=== PATIENT | female | born 1990 | race African-American/Black ===

== ENCOUNTER 2018-05-14 06:00 | Inpatient (IN) | payer OTHER ==
[~2018-05-14] VITALS: Ht 165.1 cm; Wt 82.3 kg
[2018-05-14 07:29] VITALS: Ht 165.1 cm; Wt 82.3 kg
[2018-05-14 07:32] VITALS: BP 123/81; PULSE 89; RESP 18
[2018-05-14] MEDS ORDERED: PREN-93 PO (07:35)
[2018-05-14] MEDS ORDERED: OXYTOCIN 30 UNITS/LR 500 ML IV SCH ×4 (08:00→23:47)
[2018-05-14] MEDS ORDERED: IBUPROFEN 600 MG TAB PO PRN (08:00)
[2018-05-14] MEDS ORDERED: CARBOPROST 250 MCG INJ IM PRN (08:00)
[2018-05-14] MEDS ORDERED: METHYLERGONOVINE 0.2 MG INJ IM PRN (08:00)
[2018-05-14] MEDS ORDERED: BUTORPHANOL 2 MG INJ IV PRN (08:00)
[2018-05-14] MEDS ORDERED: MISOPROSTOL 200 MCG TAB PR PRN (08:00)
[2018-05-14] MEDS ORDERED: LIDOCAINE 1% (MPF) 30 ML INJ INJ PRN (08:00)
[2018-05-14] MEDS ORDERED: OXYTOCIN 30 UNITS/LR 500 ML IV PRN (08:00)
[2018-05-14] MEDS: LACTATED RINGER'S 1,000 ML IV SCH ×3 (08:02→19:05)
--- NOTE | 2018-05-14 19:10 | PREAC ---
Date/Time of Note Date/Time of Note DATE: 05/14/18 TIME: 19:09 Anesthesia Eval and Record Evaluation Time Pre-Procedure Interview DATE: 05/14/18 TIME: 19:09 Age 27 Sex female NPO: 8 hrs Preoperative diagnosis laboe pain Planned procedure epidural Past Medical History Past Medical History: None Surgery & Anesthesia Issues No known issue Meds Anticoagulation: No Beta [place] within 24 hr: No Reason Beta [place] not given: Pt. not on B-[place] Reported Medications Vit No.124/Iron/FA ( Vitamin Tablet) 1 Each Tablet, 1 EACH PO DAILY, TAB 05/14/18 Current Medications Lactated Ringer's 1,000 ml @ 125 mls/hr Q8H IV Last administered on 05/14/18at 19:05; Admin Dose 125 MLS/HR; Start 05/14/18 at 07:35 Butorphanol Tartrate (Stadol) 2 mg Q2H PRN IV .PAIN Last administered on 05/14/18at 18:30; Admin Dose 2 MG; Start 05/14/18 at 08:00 Lidocaine (Xylocaine 1% (Mpf)) 30 ml ONCE PRN INJ .EPISIOTOMY; Start 05/14/18 at 08:00 Oxytocin/Lactated Ringer's 500 ml @ 500 mls/hr ONCE POST IV ; Start 05/14/18 at 08:00 Oxytocin/Lactated Ringer's 500 ml @ 125 mls/hr POST IV ; Start 05/14/18 at 08:00 Ibuprofen (Motrin) 600 mg ONCE PRN PO .PAIN 1-5; Start 05/14/18 at 08:00 Oxytocin/Lactated Ringer's 500 ml @ 0 mls/hr ONCE PRN IV .VAGINAL BLEEDING; Start 05/14/18 at 08:00 Methylergonovine Maleate (Methergine) 0.2 mg ONCE PRN IM .VAGINAL BLEEDING; Start 05/14/18 at 08:00 Carboprost Tromethamine (Hemabate) 250 mcg ONCE PRN IM .VAGINAL BLEEDING; Start 05/14/18 at 08:00 Misoprostol (Cytotec) 1,000 mcg ONCE PRN VT .VAGINAL BLEEDING; Start 05/14/18 at 08:00 Oxytocin/Lactated Ringer's 500 ml @ 0 mls/hr FOR INDUCTION IV Last administered on 05/14/18at 09:13; Admin Dose 1 MLS/HR; Start 05/14/18 at 08:30 Meds reviewed: Yes Allergies Coded Allergies: No Known Allergy (Unverified , 05/14/18) Allergies Reviewed: Yes Labs/Studies Labs Reviewed: Reviewed by anesthesiologist Result Diagram: 05/14/18 0817 Laboratory Tests 05/14/18 08:17 Blood Bank Test 05/14/18 08:18 Antibody Screen NEGATIVE Blood Type O POSITIVE Rh Immune Globulin Candidate NO test: Positive Studies: ECG, CXR (n/a) Pre-procedure Exam Last vitals Vital Signs Date Temp Pulse Resp B/P (MAP) Pulse Ox O2 O2 Flow FiO2 Time Delivery Rate 05/14/18 98.2 89 18 123/81 Room Air 07:32 (95) Airway: Adequate mouth opening Mallampati: Mallampati I Teeth: Normal Lung: Normal Heart: Normal ASA Physical Status ASA physical status: 2 Emergency: None Planned Anesthetic Neuraxial: Epidural Pre-operative Attestations Prior to commencing anesthesia and surgery, the patient was re-evaluated, there was verification of: *The patient's identity *The results of appropriate recent lab work and preoperative vital signs *The above evaluation not changing prior to induction *Anesthetic plan, risk benefits, alternative and complications discussed with patient/family; questions answered; patient/family understands, accepts and wishes to proceed. MEGHAN MORROW MD May 14, 2018 19:10
[2018-05-14] MEDS ORDERED: FENTAnyl 2MCG/ML-ROPIV 0.2% 100 ML ONE (19:25)
--- NOTE | 2018-05-14 20:04 | PAC ---
Date/Time of Note Date/Time of Note DATE: 05/14/18 TIME: 20:04 Post-Anesthesia Notes Post-Anesthesia Note Last documented vital signs Vital Signs Date Temp Pulse Resp B/P (MAP) Pulse Ox O2 O2 Flow FiO2 Time Delivery Rate 05/14/18 98.2 89 18 121/81 100 Room Air 1938:32 (95) Activity: WNL Respiratory function: WNL Cardiovascular function: WNL Mental status: Baseline Pain reasonably controlled: Yes Hydration appropriate: Yes Nausea/Vomiting absent: No MEGHAN MORROW MD May 14, 2018 20:04
[2018-05-14] MEDS ORDERED: NALOXONE (0.4 MG/ML) INJ IV PRN (20:30)
[2018-05-14] MEDS ORDERED: FENTAnyl 2MCG/ML-ROPIV 0.2% 100 ML BAG EPI SCH (20:30)
[2018-05-14] MEDS: LACTATED RINGER'S 1,000 ML IV* SCH (23:47)
--- NOTE | 2018-05-14 23:51 | LDN ---
Date/Time of Note Date/Time of Note DATE: 05/14/18 TIME: 23:50 Delivery Summary of a viable baby girl weighing 3080 grams or 6# 13 oz, 19" long, and with Apgars of 8/9. Weeks of Gestation 40w 3d Placenta Delivered: Spontaneously Meconium: none Episiotomy: No Perineal laceration: 0 Anesthesia type: Epidural Estimated blood loss: 100 Sponge & Needle done & correct: Yes All needle counts correct: Yes Any foreign bodies felt in the: No (vagina) Infant Delivery Information Sex Infant Sex: female Apgars 1 Minute: 8 5 Minute: 9 Suctioning Nose & mouth suctioned at ofelia: Yes Delee suction performed: No Umbilical Cord Umbilical cord with: 3 Vessels Cord presentations: nuchal cord Nuchal cord present X: 1 Cord Blood was obtained: Yes Mother & Baby Disposition Disposition Mom & Baby to Maternity; Good: Yes Baby to NICU: No ZOË DIAZ MD May 14, 2018 23:51
--- NOTE | 2018-05-14 23:55 | HP ---
Date/Time of Note Date/Time of Note DATE: 05/14/18 TIME: 23:51 OB - History Hx of Present Free Text/Dictation 27 y.o. A2 with an IUP at 40w 3d admitted for induction this AM with a cervical exam of 70%/2 cm/-2. 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 Blood Type: O+ Rubella: immune RPR/VDRL: Negative GBS Status: Negative HBsAG: Negative OB Admission Exam Vital Signs Vital Signs Vital Signs Date Temp Pulse Resp B/P (MAP) Pulse Ox O2 O2 Flow FiO2 Time Delivery Rate 05/14/18 98.2 89 18 123/81 Room Air 07:32 (95) Physical Exam HEENT: WNL Heart: Rhythm Normal Lungs: Clear Abdomen: WNL Extremities: Normal Reflexes: Normal Cervical Dilatation: 2cm Effacement: 75% Station: -2 Membranes: Intact Amniotic Fluid: Clear Heart Rate: 120's Accelerations: Accelerations Present Decelerations: No Decelerations Varibility: Minimum Contractions on Admission: 6-10 Minutes Apart Intensity: Mild Last 72 hours Lab Results CBC & BMP 05/14/18 08:17 OB Assessment/Plan Reason for admission: induction of labor Plan: Induction Induction Method: per Pitocin Protocol ZOË DIAZ MD May 14, 2018 23:55
[2018-05-15] MEDS ORDERED: MISOPROSTOL 200 MCG TAB PR PRN
[2018-05-15] MEDS ORDERED: LANOLIN HPA 1 PKT TOP PRN
[2018-05-15] MEDS ORDERED: OXYTOCIN 30 UNITS/LR 500 ML IV PRN
[2018-05-15] MEDS ORDERED: CARBOPROST 250 MCG INJ IM PRN
[2018-05-15] MEDS ORDERED: METHYLERGONOVINE 0.2 MG INJ IM PRN
--- NOTE | 2018-05-15 01:13 | DELSUM ---
Delivery Summary A-C Datetime Report Generated by CPN: 05/15/2018 01:13 DELIVERY PERSONNEL Employment Coordinator: Campbell, Radha MATERNAL INFORMATION Delivery Anesthesia: Epidural Medications in Delivery: 30 UNIT PITOCIN Delivery QBL (ml): 100 Placenta Cultured: No Maternal Complications: None LABOR SUMMARY EDC: 05/11/2018 00:00 No. Babies in Womb: 1 Attempted: No Labor Anesthesia: Epidural LABOR INFORMATION Reason for Induction: Postterm Onset of Labor: 05/14/2018 16:00 Complete Dilatation: 05/14/2018 22:06 Oxytocin: Induction Group B Beta Strep: Negative Antibiotics # of Doses: 0 Steroids Given: None Reason Steroids Not Administered: Not Applicable MEMBRANES Membranes Rupture Method: Artificial Membranes Rupture Method: Artificial Rupture of Membranes: 05/14/2018 18:08 Length of Rupture (hr): 5.27 Amniotic Fluid Color: Clear Amniotic Fluid Amount: Moderate STAGES OF LABOR Stage 1 hr: 6 Stage 1 min: 6 Stage 2 hr: 1 Stage 2 min: 18 Stage 3 hr: 0 Stage 3 min: 8 Total Time in Labor hr: 7 Total Time in Labor min: 32 VAGINAL DELIVERY Episiotomy: None Laceration Extension: N/A Laceration Type: None Laceration Repair: Not Applicable Initial Vag Sponge Count: 10 Final Vag Sponge Count: 10 Initial Vag Sharps Count: 1 Final Vag Sharps Count: 1 Sponge Count Correct: Yes; Vaginal Sweep Performed Sharps Count Correct: Yes BABY A INFORMATION Infant Delivery Date/Time: 05/14/2018 23:24 Method of Delivery: Vaginal Method of Delivery: Vaginal Born in Route : No : N/A Forceps: N/A Vacuum Extraction: N/A Shoulder Dystocia : N/A SHOULDER DYSTOCIA BABY A Infant Delivery Date/Time: 05/14/2018 23:24 PRESENTATION/POSITION BABY A Presentation: Cephalic Presentation: Cephalic Cephalic Presentation: Vertex Vertex Position: Left Occipital Anterior Breech Presentation: N/A PLACENTA INFORMATION BABY A Placenta Delivery Time : 05/14/2018 23:32 Placenta Method of Delivery: Spontaneous Placenta Status: Delivered SCORES BABY A Heart Rate 1 min: >100 bpm Resp Effort 1 min: Good Cry Reflex Irritability 1 min: Cough/Sneeze/Pulls Away Muscle Tone 1 min: Active Motion Color 1 min: Blue/Pale Resuscitation Effort 1 min: Tactile Stimulation SCORE 1 MIN: 8 Heart Rate 5 min: >100 bpm Resp Effort 5 min: Good Cry Reflex Irritability 5 min: Cough/Sneeze/Pulls Away Muscle Tone 5 min: Active Motion Color 5 min: Body [place], Extremit Blue Resuscitation Effort 5 min: Tactile Stimulation SCORE 5 MIN: 9 INFANT INFORMATION BABY A Gestational Age at Delivery: 40.3 Gestational Status: Full Term- 39- 40.6 Weeks Outcome : Liveborn Condition : Stable Sex: Female Sex: Female IDENTIFICATION/MEDS BABY A ID Band Number: [id number] ID Band Location: Right Leg; Left Arm Sensor Applied: Yes Sensor Number: [id number] Sensor Location : Cord Clamp Vitamin K Given : Not Given; Deferred by Parents Erythromycin Given: Given Both Eyes WEIGHT/LENGTH BABY A Infant Birthweight (gm): 3080 Weight (lb): 6 Weight (oz): 13 Infant Length (in): 19.00 Length (cm): 48.26 CORD INFORMATION BABY A No. Cord Vessels: 3 Nuchal Cord : Around Neck x1, Loose Cord Blood Taken: Yes Infant Suction: Mouth; Nose ASSESSMENT BABY A Infant Complications: None Physical Findings at Delivery: Other Physical Findings- Other: BABY HAS POSSIBLE EXTRA DIGIT ON L HAND Infant Respirations: Appears Normal Host/Hostess Ground/ALS Called : No Care By: Bud PURDY Transferred To: Remains with Mother
[2018-05-15 01:30] VITALS: BP 126/73; PULSE 69; RESP 16
[2018-05-15] MEDS: HYDROCODONE/APAP (5/325) TAB PO PRN (04:17)
[2018-05-15 05:05] VITALS: BP 120/60; PULSE 64; RESP 16
[2018-05-15] MEDS: IBUPROFEN 600 MG TAB PO SCH ×4 (06:22→17:19)
[2018-05-15 10:29] VITALS: BP 112/59; PULSE 70; RESP 17
[2018-05-15 12:20] VITALS: BP 107/59; PULSE 85; RESP 17
--- NOTE | 2018-05-15 15:24 | PD.PPDC ---
EMPLOYEE RELATIONS ADMINISTRATOR Discharge Instruction Condition [id number] Patient Condition: [id number] Good Diet [id number] Diet: Vpzwb4j Resume Regular Diet Activity/Restrictions [id number] Activity: Altps1g Normal Activity May Shower [id number] Restrictions: Nhmeh4y No Sexual Activity Nothing in the Vagina No Hoven No Tampons, douche Follow-up Follow-up with Physician: 6, Week/Weeks Return to clinic for [id number] SUPPLIER SPECIALIST Instructions: [id number] Fever greater than 101 Chills Worsening abdominal pain Excessive Vaginal Bleeding [id number] OB Instructions: Dymfp0g Breast Tenderness Depression ZOË DIAZ MD May 15, 2018 15:24
--- NOTE | 2018-05-15 15:26 | DS ---
Date/Time of Note Date/Time of Note DATE: 05/15/18 TIME: 15:25 Obstetrical Discharge Record Final Diagnosis Final Diagnosis: Term delivered Vaginal Delivery Obstetrical Delivery: Spontaneous Complications Augmentation: Yes Induction: Yes Condition on Discharge Physical Assessment Last Vitals: T=99.2 BP 107/59 Voiding: Yes Bowel Movement: Yes Breast: Soft, non-tender Fundus: Firm Calf Tenderness: No Patient Condition: Good ZOË DIAZ MD May 15, 2018 15:26
[2018-05-15 16:29] VITALS: BP 111/68; PULSE 66; RESP 16
[2018-05-15] MEDS: LACTATED RINGER'S 1,000 ML IV* SCH ×2 (19:39→19:45)
[2018-05-15 19:50] VITALS: BP 118/63; PULSE 95; RESP 19
[2018-05-16] MEDS: IBUPROFEN 600 MG TAB PO SCH ×3 (00:10→12:13)
--- NOTE | 2018-05-16 02:00 | DELSUM ---
Delivery Summary A-C Datetime Report Generated by CPN: 05/16/2018 02:00 DELIVERY PERSONNEL Transportation Assistant: Campbell, Radha MATERNAL INFORMATION Delivery Anesthesia: Epidural Medications in Delivery: 30 UNIT PITOCIN Delivery QBL (ml): 100 Placenta Cultured: No Maternal Complications: None LABOR SUMMARY EDC: 05/11/2018 00:00 No. Babies in Womb: 1 Attempted: No Labor Anesthesia: Epidural LABOR INFORMATION Reason for Induction: Postterm Onset of Labor: 05/14/2018 16:00 Complete Dilatation: 05/14/2018 22:06 Oxytocin: Induction Group B Beta Strep: Negative Antibiotics # of Doses: 0 Steroids Given: None Reason Steroids Not Administered: Not Applicable MEMBRANES Membranes Rupture Method: Artificial Rupture of Membranes: 05/14/2018 18:08 Length of Rupture (hr): 5.27 Amniotic Fluid Color: Clear Amniotic Fluid Amount: Moderate STAGES OF LABOR Stage 1 hr: 6 Stage 1 min: 6 Stage 2 hr: 1 Stage 2 min: 18 Stage 3 hr: 0 Stage 3 min: 8 Total Time in Labor hr: 7 Total Time in Labor min: 32 VAGINAL DELIVERY Episiotomy: None Laceration Extension: N/A Laceration Type: None Laceration Repair: Not Applicable Initial Vag Sponge Count: 10 Final Vag Sponge Count: 10 Initial Vag Sharps Count: 1 Final Vag Sharps Count: 1 Sponge Count Correct: Yes; Vaginal Sweep Performed Sharps Count Correct: Yes BABY A INFORMATION Infant Delivery Date/Time: 05/14/2018 23:24 Method of Delivery: Vaginal Born in Route : No : N/A Forceps: N/A Vacuum Extraction: N/A Shoulder Dystocia : N/A SHOULDER DYSTOCIA BABY A Delivery Date/Time: 05/14/2018 23:24 PRESENTATION/POSITION BABY A Presentation: Cephalic Cephalic Presentation: Vertex Vertex Position: Left Occipital Anterior Breech Presentation: N/A PLACENTA INFORMATION BABY A Placenta Delivery Time : 05/14/2018 23:32 Placenta Method of Delivery: Spontaneous Placenta Status: Delivered SCORES BABY A Heart Rate 1 min: >100 bpm Resp Effort 1 min: Good Cry Reflex Irritability 1 min: Cough/Sneeze/Pulls Away Muscle Tone 1 min: Active Motion Color 1 min: Blue/Pale Resuscitation Effort 1 min: Tactile Stimulation SCORE 1 MIN: 8 Heart Rate 5 min: >100 bpm Resp Effort 5 min: Good Cry Reflex Irritability 5 min: Cough/Sneeze/Pulls Away Muscle Tone 5 min: Active Motion Color 5 min: Body [place], Extremit Blue Resuscitation Effort 5 min: Tactile Stimulation SCORE 5 MIN: 9 INFANT INFORMATION BABY A Gestational Age at Delivery: 40.3 Gestational Status: Full Term- 39- 40.6 Weeks Infant Outcome : Liveborn Condition : Stable Infant Sex: Female IDENTIFICATION/MEDS BABY A ID Band Number: [id number] ID Band Location: Right Leg; Left Arm Sensor Applied: Yes Sensor Number: [id number] Sensor Location : Cord Clamp Vitamin K Given : Not Given; Deferred by Parents Erythromycin Given: Given Both Eyes WEIGHT/LENGTH BABY A Infant Birthweight (gm): 3080 Infant Weight (lb): 6 Infant Weight (oz): 13 Length (in): 19.00 Length (cm): 48.26 CORD INFORMATION BABY A No. Cord Vessels: 3 Nuchal Cord : Around Neck x1, Loose Cord Blood Taken: Yes Infant Suction: Mouth; Nose ASSESSMENT BABY A Infant Complications: None Physical Findings at Delivery: Other Physical Findings- Other: BABY HAS POSSIBLE EXTRA DIGIT ON L HAND Infant Respirations: Appears Normal Electric Mule Operator/ALS Called : No Care By: Bud PURDY Transferred To: Remains with Mother
[2018-05-16] MEDS: HYDROCODONE/APAP (5/325) TAB PO PRN ×2 (02:18→05:44)
[2018-05-16 04:00] VITALS: BP 118/58; PULSE 74; RESP 19
[2018-05-16 08:30] VITALS: BP 101/57; PULSE 59; RESP 16
[2018-05-16] MEDS ORDERED: DIPHTH/TET/ACEL PERTUSS (ADULT) 0.5 ML VIAL IM* ONE (09:00)
== END 2018-05-16 16:39 | disposition home or self-care (01) | DRG 807 ==
LOC: L-D 06:30 → MS1 05-15 02:01
PROVIDERS: ADMIT Obstetrics & Gynecology; ATTEND Obstetrics & Gynecology
PROC: 3E0P7GC Introduction of Other Therapeutic Substance into Female Reproductive, Via Natural or Artificial Opening (ICD-10-PCS; 2018-05-14)
PROC: 4A1HXCZ Monitoring of Products of Conception, Cardiac Rate, External Approach (ICD-10-PCS; 2018-05-14)
PROC: 10E0XZZ Delivery of Products of Conception, External Approach (ICD-10-PCS; principal; 2018-05-14 06:00)
DX: O48.0 Post-term pregnancy (principal); Z37.0 Single live birth; Z3A.40 40 weeks gestation of pregnancy; O69.81X0 Labor and delivery complicated by cord around neck, without compression, not applicable or unspecified
CPT/HCPCS: 62319; 80307; 85025; 85610; 85730; 86592; 86850; 86900; 86901; 90715; J0595; J2590; J3010; J7120